=== PATIENT | male | born 1990 | race Caucasian/White ===

== ENCOUNTER → 2024-09-28 | Day surgery (SDC) | payer MEDICAID ==
[~2024-09-28] VITALS: Ht 167.6 cm; Wt 88.5 kg
[~2024-09-28] MED LIST: FENTANYL CITRATE/PF 50MCG/ML 2ML VIAL ONE; HEPARIN 1000 UNITS/ML 10ML ONE; IODIXANOL 320MG/ML 100 ML BOTTLE IV ONE; LIDOCAINE HCL 1% 20ML VIAL ONE; MIDAZOLAM HCL 2 MG/2 ML VIAL ONE
[2024-09-28 09:32] LABS: BASOPHILS % 0.4 % (0.0-2.0); EOSINOPHILS % 1.1 % (0.0-5.0); HEMATOCRIT. 44.4 % (42.0-52.0); HEMOGLOBIN. 15.3 g/dL (14.0-18.0); LYMPHOCYTES % 31.2 % (20.0-50.0); MEAN CORPUSCULAR HEMOGLOBIN 28.9 pg (28.0-32.0); MEAN CORPUSCULAR HGB CONC 34.5 g/dL (31.0-37.0); MEAN CORPUSCULAR VOLUME 83.7 fL (80.0-94.0); MONOCYTES % 7.9 % (2.0-8.0); NEUTROPHILS % 59.4 % (40.0-76.0); PLATELET 336 x1000/uL (130-400); RED CELL DISTRIBUTION WIDTH 13.3 % (11.6-14.6); WHITE BLOOD COUNT 7.7 x1000/uL (4.5-11.0)
[2024-09-28 09:39] LABS: CHLORIDE 108 mEq/L (98-107); POTASSIUM 4.4 mEq/L (3.5-5.1); SODIUM 142 mEq/L (136-145)
[2024-09-28 09:40] LABS: CARBON DIOXIDE 26 mEq/L (21-32)
[2024-09-28 09:41] LABS: CALCIUM 9.1 mg/dL (8.7-10.4)
[2024-09-28 09:45] LABS: CREATININE 0.9 mg/dL (0.6-1.3); GLUCOSE 105 mg/dL (70-105); UREA NITROGEN BLOOD 12 mg/dL (9-23)
[2024-09-28] MEDS: ACETAMINOPHEN 325MG TABLET PO PRN (15:26)
== END | disposition home or self-care (01) ==
LOC: CCL 09:03
PROVIDERS: ATTEND Internal Medicine Cardiovascular Disease
DX: R94.39 Abnormal result of other cardiovascular function study (principal); R07.9 Chest pain, unspecified; Z79.899 Other long term (current) drug therapy; Z98.890 Other specified postprocedural states
CPT/HCPCS: 93458; 93005; 80048; 85025; 36415; C1893; C1769 ×2; J3010; Q9967; J1644 ×2; J3490; J2250; C1887; 99152; A4606; G0500